=== PATIENT | female | born 1950 | race African-American/Black ===

== ENCOUNTER 2017-01-29 08:04 | Emergency (ER) | payer MEDICARE, OTHER ==
[~2017-01-29] VITALS: Ht 165.1 cm; Wt 86.2 kg
[~2017-01-29 08:04] MED LIST: AMLODIPINE; BENAZEPRIL
[2017-01-29 08:32] VITALS: BP 130/89
== END 2017-01-29 09:27 | disposition home or self-care (01) ==
LOC: ER 08:08
DX: S92.425A Nondisplaced fracture of distal phalanx of left great toe, initial encounter for closed fracture (principal); I10 Essential (primary) hypertension; W08.XXXA Fall from other furniture, initial encounter; Y93.01 Activity, walking, marching and hiking; Y99.8 Other external cause status; Y92.89 Other specified places as the place of occurrence of the external cause
CPT/HCPCS: 73660; 99284; L3260

== ENCOUNTER 2018-09-21 15:54 | Emergency (ER) | payer MEDICARE, OTHER ==
[~2018-09-21] VITALS: Ht 167.6 cm; Wt 90.7 kg
[2018-09-21 16:12] VITALS: BP 187/100
[2018-09-21] MEDS ORDERED: cloNIDine HCL 0.1 MG TAB ONE (16:20)
[2018-09-21] MEDS ORDERED: cloNIDine HCL 0.1 MG TAB PO ONE (16:30)
[2018-09-21 17:14] LABS: Basophils # (auto) 0 uL; Basophils % (auto) 0.5 % (0.0-2.0); Eosinophils # (auto) 0 uL; Eosinophils % (auto) 0.4 % (0.0-7.0); Hematocrit 43.9 % (36.0-46.0); Hemoglobin 14.7 g/dL (12.2-16.2); Lymphocytes # (auto) 1.2 uL; Lymphocytes % (auto) 14.1 % (10.0-50.0); Mean Corpuscular Hemoglobin 31.1 pg (28.0-32.0); Mean Corpuscular Hgb Conc. 33.4 g/dL (32.0-36.0); Mean Corpuscular Volume 92.9 fL (80.0-100.0); Monocytes # (auto) 0.7 uL; Monocytes % (auto) 8.3 % (0.0-12.0); Neutrophils # (auto) 6.7 uL; Neutrophils % (auto) 76.7 % (37.0-80.0); Platelet Count (auto) 181 10^3/uL (140-450); Red Blood Cells 4.73 10^6/uL (4.0-5.20); Red Cell Distribution Width 13.6 % (11.8-14.3); White Blood Cell 8.7 10^3/uL (4.4-10.8)
[2018-09-21 17:30] LABS: Chloride 107 mmol/L (98-107); Potassium 3.7 mmol/L (3.5-5.1); Sodium 138 mmol/L (136-145)
[2018-09-21 17:36] LABS: Alanine Aminotransferase 28 U/L (13-56); Albumin 4.1 g/dL (3.4-5.0); Alkaline Phosphatase 124 U/L (45-117); Anion Gap 7 (5-15); Aspartate Aminotransferase 20 U/L (15-37); BUN/Creatinine Ratio 10.8; Bilirubin, Total 0.7 mg/dL (0.2-1.0); Blood Urea Nitrogen 9 mg/dL (7-18); Calcium 8.6 mg/dL (8.5-10.1); Carbon Dioxide 24 mmol/L (21-32); GFR African American 88 mL/min; GFR Non-African American 73 mL/min; Glucose 83 mg/dL (74-106)
== END 2018-09-21 21:30 | disposition left against medical advice (07) ==
LOC: ER 16:06
DX: R42 Dizziness and giddiness (principal); R50.9 Fever, unspecified; Z53.21 Procedure and treatment not carried out due to patient leaving prior to being seen by health care provider
CPT/HCPCS: 36415; 71046; 80053; 84484; 85025; 93005

== ENCOUNTER 2019-05-05 12:49 | Emergency (ER) | payer BC, MEDICARE ==
[~2019-05-05] VITALS: Ht 167.6 cm; Wt 95.3 kg
[2019-05-05] MEDS ORDERED: MORPHINE SULFATE 4 MG/ML SYR/VIAL IV ONE (13:45)
[2019-05-05] MEDS ORDERED: ONDANSETRON HCL 4 MG/2 ML VIAL IV ONE (13:45)
[2019-05-05 14:05] LABS: Basophils # (auto) 0.1 uL; Basophils % (auto) 0.9 % (0.0-2.0); Eosinophils # (auto) 0 uL; Eosinophils % (auto) 0.5 % (0.0-7.0); Hematocrit 50.2 % (36.0-46.0); Hemoglobin 16.7 g/dL (12.2-16.2); Lymphocytes # (auto) 1.8 uL; Lymphocytes % (auto) 22.4 % (10.0-50.0); Mean Corpuscular Hemoglobin 30.8 pg (28.0-32.0); Mean Corpuscular Hgb Conc. 33.4 g/dL (32.0-36.0); Mean Corpuscular Volume 92.1 fL (80.0-100.0); Monocytes # (auto) 0.6 uL; Monocytes % (auto) 7.2 % (0.0-12.0); Neutrophils # (auto) 5.5 uL; Nucleated Red Blood Cells % 0.1 %; Platelet Count (auto) 237 10^3/uL (140-450); Red Blood Cells 5.44 10^6/uL (4.0-5.20); Red Cell Distribution Width 14.6 % (11.8-14.3)
[2019-05-05 14:29] LABS: Albumin 4.3 g/dL (3.4-5.0); Calcium 9.5 mg/dL (8.5-10.1); Potassium 4.2 mmol/L (3.5-5.1)
[2019-05-05 14:31] LABS: BUN/Creatinine Ratio 11.2
[2019-05-05 14:41] LABS: Bilirubin, Total 0.5 mg/dL (0.2-1.0); Total Protein 8.1 g/dL (6.4-8.2)
[2019-05-05] MEDS ORDERED: HYDROmorphone HCL 2 MG/ML VL IV ONE (15:45)
[2019-05-05 17:39] LABS: INR 0.95 (0.9-1.15); Partial Thromboplastin Time 24.6 sec (23.64-32.05)
[2019-05-05] MEDS ORDERED: HYDROcodone-ACET 10/325MG TAB PO ONE (20:00)
[2019-05-05 20:12] VITALS: BP 128/86
== END 2019-05-05 20:35 | disposition home or self-care (01) ==
LOC: ER 12:49
DX: G57.12 Meralgia paresthetica, left lower limb (principal); I10 Essential (primary) hypertension; Z79.899 Other long term (current) drug therapy
CPT/HCPCS: 36415; 80053; 85025; 85379; 85610; 85730; 93971; 96374; 96375; 99284; J1170; J2270; J2405

== ENCOUNTER 2021-11-26 23:05 | Emergency (ER) | payer MEDICARE ==
[~2021-11-26] VITALS: Ht 165.1 cm; Wt 90.7 kg
[2021-11-26 23:31] VITALS: BP 172/109
== END 2021-11-26 23:39 | disposition left against medical advice (07) ==
LOC: EDBD 23:05 → ER 23:05
DX: T36.8X1A Poisoning by other systemic antibiotics, accidental (unintentional), initial encounter (principal); Z53.21 Procedure and treatment not carried out due to patient leaving prior to being seen by health care provider; Y92.89 Other specified places as the place of occurrence of the external cause

== ENCOUNTER 2022-01-20 13:01 | Emergency (ER) | payer MEDICARE ==
[~2022-01-20] VITALS: Ht 170.2 cm; Wt 81.6 kg
[2022-01-20] MEDS ORDERED: ONDANSETRON HCL 4 MG/2 ML VIAL IV ONE ×2 (13:30→15:45)
[2022-01-20] MEDS ORDERED: MORPHINE SULFATE 4 MG/ML SYR/VIAL IV ONE (13:30)
[2022-01-20] MEDS ORDERED: SODIUM CHLORIDE 0.9% 1,000 ML IV ONE (13:30)
[2022-01-20 14:28] LABS: Basophils # (auto) 0 10 ^3/uL (0-0.2); Basophils % (auto) 0.3 % (0.0-2.0); Eosinophils # (auto) 0 10 ^3/uL (0-0.8); Eosinophils % (auto) 0.4 % (0.0-7.0); Hematocrit 41.8 % (36.0-46.0); Hemoglobin 13.4 g/dL (12.2-16.2); Lymphocytes # (auto) 1.2 10 ^3/uL (0.4-5.4); Lymphocytes % (auto) 13.4 % (10.0-50.0); Mean Corpuscular Hemoglobin 29.2 pg (28.0-32.0); Mean Corpuscular Hgb Conc. 32.1 g/dL (32.0-36.0); Monocytes # (auto) 0.7 10 ^3/uL (0-1.3); Monocytes % (auto) 7.2 % (0.0-12.0); Neutrophils # (auto) 7.3 10 ^3/uL (1.6-8.6); Neutrophils % (auto) 78.7 % (37.0-80.0); Red Cell Distribution Width 14.6 % (11.8-14.3); White Blood Cell 9.3 10^3/uL (4.4-10.8)
[2022-01-20 14:45] LABS: BUN/Creatinine Ratio 12.7; Calcium 9.3 mg/dL (8.5-10.1); INR 1.03 (0.9-1.15); Partial Thromboplastin Time 28.3 sec (23.6-33.0); Potassium 3.8 mmol/L (3.5-5.1)
[2022-01-20 14:50] LABS: Bilirubin, Total 0.5 mg/dL (0.2-1.0); Total Protein 8.1 g/dL (6.4-8.2)
[2022-01-20] MEDS ORDERED: HYDROmorphone HCL 2 MG/ML VL/or syr IV ONE (15:45)
[2022-01-20 17:43] VITALS: BP 158/88
== END 2022-01-20 17:43 | disposition home or self-care (01) ==
LOC: ER 13:01 → EDBD 13:01 → ER 17:40
DX: M25.571 Pain in right ankle and joints of right foot (principal); I10 Essential (primary) hypertension; Z98.51 Tubal ligation status
CPT/HCPCS: 29515; 36415; 73610; 80053; 84484; 85025; 85610; 85730; 96361; 96374; 96375; 96376; 99284; J1170; J2270; J2405; J7030

== ENCOUNTER 2022-06-15 16:50 | Emergency (ER) | payer MEDICARE ==
[~2022-06-15] VITALS: Ht 170.2 cm; Wt 81.8 kg
[2022-06-15 16:50] VITALS: BP 174/99
[2022-06-15] MEDS ORDERED: IOHEXOL 350 MG/ML 100ML IJ ONE ×2 (19:08→21:08)
[2022-06-15 20:04] LABS: Basophils # (auto) 0 10 ^3/uL (0-0.2); Basophils % (auto) 0.3 % (0.0-2.0); Eosinophils # (auto) 0 10 ^3/uL (0-0.8); Eosinophils % (auto) 0.1 % (0.0-7.0); Hematocrit 43.6 % (36.0-46.0); Hemoglobin 14.4 g/dL (12.2-16.2); Lymphocytes # (auto) 1.1 10 ^3/uL (0.4-5.4); Lymphocytes % (auto) 10.4 % (10.0-50.0); Mean Corpuscular Volume 93.9 fL (80.0-100.0); Monocytes # (auto) 0.4 10 ^3/uL (0-1.3); Monocytes % (auto) 4.1 % (0.0-12.0); Neutrophils % (auto) 85.1 % (37.0-80.0); Red Blood Cells 4.64 10^6/uL (4.0-5.20); Red Cell Distribution Width 13.3 % (11.8-14.3); White Blood Cell 10.5 10^3/uL (4.4-10.8)
[2022-06-15 20:17] LABS: Albumin 3.9 g/dL (3.4-5.0); BUN/Creatinine Ratio 14.9; Magnesium 2.2 mg/dL (1.6-2.6); Potassium 3.2 mmol/L (3.5-5.1)
[2022-06-15 20:18] LABS: INR 1.01 (0.9-1.15); Partial Thromboplastin Time 25.8 sec (24.6-33.4)
[2022-06-15 20:20] LABS: Bilirubin, Total 0.5 mg/dL (0.2-1.0); Total Protein 8.4 g/dL (6.4-8.2)
== END 2022-06-15 22:25 | disposition home or self-care (01) ==
LOC: ER 16:50 → EDBD 16:50 → ER 22:25
DX: R55 Syncope and collapse (principal); R42 Dizziness and giddiness; R53.1 Weakness; I10 Essential (primary) hypertension; Z86.718 Personal history of other venous thrombosis and embolism; Z98.890 Other specified postprocedural states
CPT/HCPCS: 36415; 70450; 71275; 80053; 83735; 85025; 85610; 85730; 93005; 99285; Q9967

== ENCOUNTER 2022-08-26 15:13 | Inpatient (IN) | payer MEDICARE ==
[~2022-08-26] VITALS: Ht 165.1 cm; Wt 87.5 kg
[2022-08-26] MEDS ORDERED: ASPirin 325 MG TAB PO ONE (15:30)
[2022-08-26] MEDS ORDERED: cloNIDine HCL 0.1 MG TAB PO ONE (15:30)
[2022-08-26 15:37] LABS: Basophils # (auto) 0 10 ^3/uL (0-0.2); Basophils % (auto) 0.5 % (0.0-2.0); Eosinophils # (auto) 0.1 10 ^3/uL (0-0.8); Eosinophils % (auto) 0.6 % (0.0-7.0); Hematocrit 45.5 % (36.0-46.0); Hemoglobin 14.7 g/dL (12.2-16.2); Lymphocytes # (auto) 2.1 10 ^3/uL (0.4-5.4); Mean Corpuscular Hemoglobin 31.3 pg (28.0-32.0); Mean Corpuscular Hgb Conc. 32.3 g/dL (32.0-36.0); Mean Corpuscular Volume 96.9 fL (80.0-100.0); Monocytes # (auto) 0.6 10 ^3/uL (0-1.3); Monocytes % (auto) 7.4 % (0.0-12.0); Neutrophils # (auto) 5.1 10 ^3/uL (1.6-8.6); Neutrophils % (auto) 64.5 % (37.0-80.0); Nucleated Red Blood Cells % 0.1 %; Red Blood Cells 4.69 10^6/uL (4.0-5.20); Red Cell Distribution Width 13.4 % (11.8-14.3); White Blood Cell 7.9 10^3/uL (4.4-10.8)
[2022-08-26 15:54] LABS: INR 0.99 (0.9-1.15); Partial Thromboplastin Time 25.1 sec (24.6-33.4)
[2022-08-26 15:56] LABS: Albumin 4.4 g/dL (3.4-5.0); Anion Gap 7 (5-15); Blood Urea Nitrogen 10 mg/dL (7-18); Calcium 9.5 mg/dL (8.5-10.1); Carbon Dioxide 25 mmol/L (21-32); Chloride 110 mmol/L (98-107); Glucose 82 mg/dL (74-106); Potassium 4.8 mmol/L (3.5-5.1); Sodium 142 mmol/L (136-145)
[2022-08-26 15:57] LABS: Alanine Aminotransferase 23 U/L (13-56); Aspartate Aminotransferase 33 U/L (15-37); BUN/Creatinine Ratio 13.5; GFR African American 100 mL/min; GFR Non-African American 82 mL/min
[2022-08-26 16:00] LABS: Alkaline Phosphatase 207 U/L (45-117); Bilirubin, Total 0.5 mg/dL (0.2-1.0); Total Protein 8.5 g/dL (6.4-8.2)
[2022-08-26] MEDS ORDERED: MORPHINE SULFATE INJ 2 MG/ml SYRG IV PRN (21:30)
[2022-08-26] MEDS ORDERED: NITROGLYCERIN 0.4 MG SL TAB SL PRN (21:30)
[2022-08-26] MEDS ORDERED: BENA40TA8 PO (21:36)
[2022-08-26] MEDS ORDERED: AMLO-489 PO (21:36)
[2022-08-26] MEDS ORDERED: NTG 0.1MG/HR TOPICAL PATCH TD ONE (21:45)
[2022-08-26] MEDS ORDERED: hydrALAZINE HCL 20 MG/ML VL IV PRN (22:00)
[2022-08-26] MEDS ORDERED: ATORVASTATIN 20 MG TAB PO SCH (22:00)
[2022-08-26 22:01] LABS: Triglycerides 92 mg/dL (< 150)
[2022-08-26 22:09] LABS: Cholesterol 205 mg/dL (< 200); HDL Cholesterol 85 mg/dL (40-59); LDL Cholesterol 110 mg/dL (< 100)
[2022-08-26 22:39] LABS: INR 1.02 (0.9-1.15); Partial Thromboplastin Time 25.9 sec (24.6-33.4)
[2022-08-27] MEDS: HYDROcodone-ACET 7.5/325MG TAB PO PRN ×2 (05:45→11:45)
[2022-08-27 06:10] LABS: Urine Bacteria FEW /hpf (None Seen); Urine Blood Negative /uL (Negative); Urine Specific Gravity 1.002 (1.001-1.035); Urine WBC <1 /hpf (0 - 5)
[2022-08-27 06:34] LABS: Basophils # (auto) 0 10 ^3/uL (0-0.2); Basophils % (auto) 0.6 % (0.0-2.0); Eosinophils # (auto) 0.1 10 ^3/uL (0-0.8); Eosinophils % (auto) 1.8 % (0.0-7.0); Hematocrit 39.4 % (36.0-46.0); Hemoglobin 12.8 g/dL (12.2-16.2); Lymphocytes # (auto) 1.5 10 ^3/uL (0.4-5.4); Lymphocytes % (auto) 26.8 % (10.0-50.0); Mean Corpuscular Hemoglobin 30.9 pg (28.0-32.0); Mean Corpuscular Hgb Conc. 32.5 g/dL (32.0-36.0); Monocytes # (auto) 0.6 10 ^3/uL (0-1.3); Monocytes % (auto) 10.6 % (0.0-12.0); Neutrophils # (auto) 3.3 10 ^3/uL (1.6-8.6); Neutrophils % (auto) 60.2 % (37.0-80.0); Nucleated Red Blood Cells % 0.2 %; Red Blood Cells 4.15 10^6/uL (4.0-5.20); Red Cell Distribution Width 13.6 % (11.8-14.3); White Blood Cell 5.4 10^3/uL (4.4-10.8)
[2022-08-27 06:38] LABS: Albumin 3.4 g/dL (3.4-5.0); BUN/Creatinine Ratio 15.6; Calcium 8.8 mg/dL (8.5-10.1)
[2022-08-27 06:41] LABS: Bilirubin, Total 0.5 mg/dL (0.2-1.0); Total Protein 6.5 g/dL (6.4-8.2)
[2022-08-27 07:06] VITALS: BP 172/84
[2022-08-27] MEDS ORDERED: ENOXAPARIN SOD 40 MG/0.4 ML SYRINGE SC SCH (10:00)
[2022-08-27] MEDS ORDERED: NTG 0.1MG/HR TOPICAL PATCH TD SCH (10:00)
[2022-08-27] MEDS ORDERED: ASPirin 81 mg TAB PO SCH (10:00)
[2022-08-27] MEDS ORDERED: hydrALAZINE HCL 25 MG TAB PO SCH (14:00)
[2022-08-28] MEDS ORDERED: amLODIPine BESYLATE 5 MG TAB PO SCH (10:00)
[2022-08-28] MEDS ORDERED: BENAZEPRIL HCL 10 MG TAB PO SCH (10:00)
== END 2022-08-27 14:00 | disposition left against medical advice (07) | DRG 311 ==
LOC: ER 15:13 → TELE 21:32 → TELE-CENTR 08-27 08:19
PROVIDERS: ADMIT Registered Nurse; ATTEND Family Medicine
DX: I24.9 Acute ischemic heart disease, unspecified (principal); G45.9 Transient cerebral ischemic attack, unspecified; I16.1 Hypertensive emergency; I16.0 Hypertensive urgency; I10 Essential (primary) hypertension; E66.9 Obesity, unspecified; Z20.822 Contact with and (suspected) exposure to COVID-19; E78.00 Pure hypercholesterolemia, unspecified; E78.5 Hyperlipidemia, unspecified; Z53.29 Procedure and treatment not carried out because of patient's decision for other reasons; Z68.32 Body mass index [BMI] 32.0-32.9, adult; Z83.3 Family history of diabetes mellitus; Z86.711 Personal history of pulmonary embolism; Z86.718 Personal history of other venous thrombosis and embolism
CPT/HCPCS: 36415; 70450; 71045; 80053; 80061; 81001; 83036; 83880; 84443; 84484; 85025; 85379; 85610; 85730; 87426; 93005; 93306; 93886; 93971; 96374; G0378